=== PATIENT | female | born 1975 | race Caucasian/White ===

== ENCOUNTER 2022-07-07 00:38 | Day surgery (SDC) | payer BC, SELFPAY ==
--- NOTE | 2022-06-27 15:15 | PC.NURSE ---
Attempted to call pt. Left message on machine to return call.
[2022-06-27 15:26] VITALS: BMI 30.4
[2022-07-07 08:07] VITALS: BP 137/87; PULSE 62; RESP 18; TEMP 36.1; O2SAT 100; BMI 31.1
[2022-07-07] MEDS: LACTATED RINGERS 1,000 ML 150 ML IV CONT (08:16)
--- NOTE | 2022-07-07 08:21 | WPDANESEPPF ---
Anes - Initial Pre Proc Eval Procedure: Operation Date: 07/07/22 09:00 Proposed Procedures p Colonoscopy - Fausto Brown MD Date/Time: 07/07/22 08:21 Surgeon: Fausto Brown MD Pre Op Diagnosis: positive cologuard Patient Data Age: 47 Gender: F Height: 1.73 m Weight: 92.8 kg Last Vital Signs Temp 97 F L 07/07/22 08:07 Pulse 62 07/07/22 08:07 Resp 18 07/07/22 08:07 BP 137/87 07/07/22 08:07 Pulse Ox 100 07/07/22 08:07 O2 Del Method Room Air 07/07/22 08:07 Allergies Allergy/AdvReac Type Severity Reaction Status Date / Time No Known Allergies Allergy Unknown Verified 07/07/22 08:04 Home Medications Medication Instructions Recorded Confirmed Type ergocalciferol (vitamin D2) 1,250 1,250 mcg PO WEEKLY 06/27/22 06/27/22 History mcg (50,000 unit) capsule sodium,potassium,mag sulfates 17.5 See Rx Instructions .Route 06/27/22 Rx gram-3.13 gram-1.6 gram oral soln .COMPLEX #1 dose pk (Suprep Bowel Prep Kit) Patient hx anesthesia problems: none Family hx anesthesia problems: none Results Review: All pre-operative results and documents have been reviewed as part of the pre-operative evaluation. [facility] Social History Social History Smoking status: Current every day smoker Tobacco type: e-cigarettes/vaping Alcohol intake: current Substance use: never Substance use type: does not use Other substance usage details: OCC. MARIJUANA Living arrangements: with family Spiritual care concerns: No Anes - Eval Final PreProcedure Day of Procedure 07/07/22 08:21 Patient weight: obese Heart: regular rate and rhythm Lungs: clear to auscultation Airway: Mallampati scale class II Neurological: alert and oriented Last oral intake: >/= 8 hours ASA classification: II Emergent: no Anesthetic plan: proceed Anesthesia type and monitoring: general GIVS and standard monitoring Results Review: All pre-operative results and documents have been reviewed as part of the pre-operative evaluation. Informed Consent: The patient's anesthetic plan and its attendant risks and benefits were discussed with the patient/family/POA. Questions were solicited and answers provided to the satisfaction of the patient/family/POA.
--- NOTE | 2022-07-07 08:39 | PM.HPGS ---
History of Present Illness History of Present Illness Consent: Risks, benefits, and alternatives have been discussed and questions answered. Patient agrees to proceed with procedure. Chief complaint: positive cologuard Narrative: Alida Eubanks is a 47 year old female Presents for screening colonoscopy. Patient recently found to have positive stool Cologuard test. Patient's current weight appetite and bowel movements are normal. Patient denies abdominal pain. She has had no bleeding. Family history is significant that her father had colon polyps. Review of Systems Review of Systems: Review of systems noncontributory. [facility] Social History Social History Smoking status: Current every day smoker Tobacco type: e-cigarettes/vaping Alcohol intake: current Substance use: never Substance use type: does not use Other substance usage details: OCC. MARIJUANA Living arrangements: with family Spiritual care concerns: No Meds Home Medications and Allergies Home Medications Medication Instructions Recorded Confirmed Type ergocalciferol (vitamin D2) 1,250 1,250 mcg PO WEEKLY 06/27/22 06/27/22 History mcg (50,000 unit) capsule sodium,potassium,mag sulfates 17.5 See Rx Instructions .Route 06/27/22 Rx gram-3.13 gram-1.6 gram oral soln .COMPLEX #1 dose pk (Suprep Bowel Prep Kit) Allergies Allergy/AdvReac Type Severity Reaction Status Date / Time No Known Allergies Allergy Unknown Verified 07/07/22 08:04 Vital Signs Vital Signs - 24 hr 07/07/22 08:07 Temperature 97 F L Pulse Rate 62 Respiratory Rate 18 Blood Pressure 137/87 Pulse Oximetry 100 Oxygen Delivery Room Air Exam Narrative: Physical exam reveals patient to be alert. Vital signs stable. HEENT exam is unremarkable. Patient is anicteric. Lungs are clear to auscultation and percussion. Heart is without murmurs or extra sounds. Abdomen bowel sounds are present soft nontender with no organomegaly. Digital external rectal exam is normal. Assessment and Plan Assessment and plan (1) Positive colorectal cancer screening using Cologuard test: Code(s): R19.5 - Other fecal abnormalities Status: Acute Assessment and Plan: Patient has positive Cologuard test suggesting higher than average chance of colon polyps. Additionally father has had colon polyps. Plan for screening colonoscopy this time consider this at intervals in the future as well.
[2022-07-07 09:08] VITALS: BP 105/62; PULSE 67; RESP 24; O2SAT 100
[2022-07-07 09:18] VITALS: BP 103/63; PULSE 72; RESP 18; O2SAT 100
[2022-07-07 09:28] VITALS: BP 111/67; PULSE 53; RESP 16; O2SAT 100
== END 2022-07-07 09:33 | disposition home or self-care (01) ==
PROVIDERS: PCP Family Medicine; Visit Provider Internal Medicine Gastroenterology
PROC: 0DJD8ZZ Inspection of Lower Intestinal Tract, Via Natural or Artificial Opening Endoscopic (ICD-10-PCS; CPT 45378; principal; 2022-07-07 09:00)
DX: R19.5 Other fecal abnormalities (principal); K64.8 Other hemorrhoids; Z83.71 Family history of colonic polyps; F17.290 Nicotine dependence, other tobacco product, uncomplicated; F12.90 Cannabis use, unspecified, uncomplicated; E66.9 Obesity, unspecified; Z68.31 Body mass index [BMI] 31.0-31.9, adult
CPT/HCPCS: 45378; J2704; J7120

== ENCOUNTER 2023-11-02 14:14 | Outpatient (CLI) | payer BC, SELFPAY ==
--- NOTE | ~2023-11-02 | MM_ITS ---
EXAMINATION: MM screening jose david BI w [facility] HISTORY: Screening TECHNIQUE: Craniocaudal and mediolateral oblique 3-D tomosynthesis images were obtained and synthetic 2-D images were generated. CAD analysis was submitted and interpreted. COMPARISON: No prior mammogram is available for comparison at this institution. BREAST PARENCHYMAL COMPOSITION: There are scattered areas of fibroglandular density. FINDINGS: There is asymmetry in the upper outer quadrant of the left breast. There is no mammographic evidence for malignancy in the right breast. IMPRESSION: 1. Asymmetry of the left breast. 2. Additional mammographic views and possible breast ultrasound are recommended. BI-RADS Category 0: Incomplete: Needs additional imaging evaluation. Reviewed, dictated and finalized at location A. [employer] IMPRESSION: 1. Asymmetry of the left breast. 2. Additional mammographic views and possible breast ultrasound are recommended . BI-RADS Category 0: Incomplete: Needs additional imaging evaluation.
== END 2023-11-02 14:15 | disposition home or self-care (01) ==
LOC: ANHIMG 14:22
PROVIDERS: PCP Family Medicine; Visit Provider Nurse Practitioner Family
DX: Z12.31 Encounter for screening mammogram for malignant neoplasm of breast (principal); R92.8 Other abnormal and inconclusive findings on diagnostic imaging of breast
CPT/HCPCS: 77063; 77067

== ENCOUNTER 2023-11-28 10:42 | Outpatient (CLI) | payer BC, SELFPAY ==
--- NOTE | ~2023-11-28 | MMUS_ITS ---
EXAMINATION: MM diagnostic jose david LT w markus, US breast LT limited HISTORY: Follow-up left breast asymmetries TECHNIQUE: Additional 3-D tomosynthesis images of the left breast were performed and synthetic 2-D im ages were generated. CAD analysis was submitted and interpreted. High resolution Limited left breast ultrasound was performed. COMPARISON: 11/02/2023 BREAST PARENCHYMAL COMPOSITION: Not dense: There are scattered areas of fibroglandular density. FINDINGS: MAMMOGRAPHIC FINDINGS: There are persistent asymmetries in the upper central/outer aspect of the left breast. There are no s uspicious calcifications. ULTRASOUND: Limited left breast ultrasound: At 11:30, 4 cm from the nipple there is a 4 mm cyst. At 3:00 near the nipple there is a 5 mm cyst. No suspicious masses to suggest malignancy. IMPRESSION: 1. No evidence for malignancy in the left breast. Benign findings. 2. Routine yearly screening mammogram and regular clinical breast examination are recommended. BI-RADS Category 2: Benign finding(s). Reviewed, dictated and finalized at location A. IMPRESSION: 1. No evidence for malignancy in the left breast. Benign findings. 2. Routine yearly screening mammogram and regular clinical breast examination a re recommended. BI-RADS Category 2: Benign finding(s).
== END 2023-11-28 10:43 | disposition home or self-care (01) ==
PROVIDERS: PCP Nurse Practitioner Family; Visit Provider Family Medicine
DX: R92.8 Other abnormal and inconclusive findings on diagnostic imaging of breast (principal)
CPT/HCPCS: 76642; 77061; 77065; G0279